=== PATIENT | male | born 1990 | race Hispanic/Latino ===

== ENCOUNTER 2023-04-17 08:49 | Emergency (ER) | payer BC ==
[~2023-04-17] VITALS: Ht 175.3 cm; Wt 86.2 kg
[2023-04-17 09:49] LABS: BASOPHILS % (AUTO) 0.3 % (0.0-5.0); HEMATOCRIT 53.1 % (42-54); LYMPHOCYTES % (AUTO) 14.4 % (21.0-51.0); MEAN CORPUSCULAR HEMOGLOBIN 28.5 pg (27.0-33.0); MEAN CORPUSCULAR HGB CONC 33.5 g/dL (32.0-36.0); MEAN CORPUSCULAR VOLUME 85.1 fL (79-99); MONOCYTES % (AUTO) 8.3 % (3.0-13.0); NEUTROPHILS % (AUTO) 75.3 % (40.0-77.0); PLATELET COUNT (AUTO) 196 K/uL (130-400); RED BLOOD CELL COUNT(AUTO) 6.24 MIL/uL (4.50-6.20); RED CELL DISTRIBUTION WIDTH 13.2 % (11.0-15.5); WHITE BLOOD COUNT (AUTO) 13.3 K/uL (4.8-10.8)
[2023-04-17 10:09] LABS: INR 0.96 (0.85-1.15); PROTHROMBIN TIME 10.5 SEC (9.6-11.6)
[2023-04-17 10:10] LABS: PARTIAL THROMBOPLASTIN TIME 27.6 SEC (26.3-35.5)
[2023-04-17] MEDS ORDERED: NITROGLYCERIN 1GM OINT 1 INCH/1GM TD ONE (10:30)
[2023-04-17] MEDS ORDERED: METOPROLOL TARTRATE 25 MG TAB PO ONE (10:30)
[2023-04-17 10:49] LABS: CREATININE 1.2 mg/dL (0.5-1.5)
[2023-04-17 10:50] LABS: ALBUMIN 3.8 g/dL (3.5-5.0); TOTAL PROTEIN, SERUM 7.6 g/dL (6.0-8.3)
[2023-04-17] MEDS ORDERED: HYDROCODONE/ACETAMINOPHEN 5/325 MG TAB PO ONE (11:30)
[2023-04-17] MEDS ORDERED: 0.9%NACL 1000ML 1,000 ML IV ONE (11:36)
[2023-04-17] MEDS ORDERED: ACET-2079 PO (11:40)
[2023-04-17] MEDS ORDERED: METO25TA6 PO (11:42)
[2023-04-17 13:01] VITALS: BP 158/76
== END 2023-04-17 13:00 | disposition home or self-care (01) ==
LOC: EDH 08:49
DX: I11.0 Hypertensive heart disease with heart failure (principal); E11.9 Type 2 diabetes mellitus without complications; G89.18 Other acute postprocedural pain; E86.0 Dehydration; Z79.899 Other long term (current) drug therapy
CPT/HCPCS: 99283; 96360; 80053; 85025; 85610; 85730; 36415; J7030

== ENCOUNTER 2024-06-10 19:48 | Emergency (ER) | payer BC ==
[~2024-06-10] VITALS: Ht 175.3 cm; Wt 90.7 kg
[~2024-06-10 19:48] MED LIST: ACET-2079 PO; METO25TA6 PO
[2024-06-10 20:06] LABS: BASOPHILS # (AUTO) 0.04 K/uL (0.00-0.20); BASOPHILS % (AUTO) 0.5 % (0.0-5.0); EOSINOPHILS # (AUTO) 0.13 K/uL (0.00-0.70); EOSINOPHILS % (AUTO) 1.6 % (0.0-8.0); IMMATURE GRANULOCYTE ABSOLUTE 0.03 K/uL (0-1); LYMPHOCYTES # (AUTO) 1.6 K/uL (1.0-4.8); MEAN CORPUSCULAR HEMOGLOBIN 28.2 pg (27.0-33.0); MEAN CORPUSCULAR HGB CONC 34.1 g/dL (32.0-36.0); MEAN CORPUSCULAR VOLUME 82.7 fL (79-99); MONOCYTES # (AUTO) 0.7 K/uL (0.1-1.0); MONOCYTES % (AUTO) 8.5 % (3.0-13.0); NEUTROPHILS # (AUTO) 5.6 K/uL (1.8-7.7); PLATELET COUNT (AUTO) 226 K/uL (130-400); RED BLOOD CELL COUNT(AUTO) 5.56 MIL/uL (4.50-6.20); RED CELL DISTRIBUTION WIDTH 12.9 % (11.0-15.5); WHITE BLOOD COUNT (AUTO) 8.1 K/uL (4.8-10.8)
[2024-06-10 20:23] LABS: CARBON DIOXIDE 29 mmol/L (21-32); CHLORIDE 105 mmol/L (101-111); CREATININE 1.2 mg/dL (0.5-1.3); GLOMERULAR FILTR. RATE CALC 81 mL/min (>90); GLUCOSE,RANDOM 111 mg/dL (70-105); POTASSIUM 4.3 mmol/L (3.5-5.1); SODIUM SERUM 142 mmol/L (136-145); UREA NITROGEN, BLOOD 9 mg/dL (7-18)
[2024-06-10 20:25] LABS: INR 1.04 (0.85-1.15); PROTHROMBIN TIME 11.2 SEC (9.6-11.6)
[2024-06-10 20:26] LABS: ALCOHOL, BLOOD < 3 mg/dL (0-10)
[2024-06-10] MEDS: MORPHINE 4 MG SYG IVP ONE ×2 (21:33→23:07)
[2024-06-11] MEDS: HYDROMORPHONE 1 MG INJ IVP ONE (01:11)
[2024-06-11] MEDS ORDERED: HYDR-4068 PO (01:38)
[2024-06-11 01:58] VITALS: BP 118/76; PULSE 76; RESP 16; O2SAT 98
== END 2024-06-11 02:27 | disposition home or self-care (01) ==
LOC: EDH 19:48
DX: M25.511 Pain in right shoulder (principal); Z79.899 Other long term (current) drug therapy; Z98.890 Other specified postprocedural states; V89.9XXA Person injured in unspecified vehicle accident, initial encounter; Y93.89 Activity, other specified; Y92.89 Other specified places as the place of occurrence of the external cause; Y99.2 Volunteer activity
CPT/HCPCS: 99285; 70450; 96374; 80048; 85025; 85610; 85730; 36415; 73610; 73080; 73630; 73552; 73030; 72125; 71250; 74176; 96376; 93005; 73200; 96375; J2270 ×2; J1170